=== PATIENT | female | born 1940 | race Caucasian/White ===

== ENCOUNTER 2016-10-03 06:16 | Emergency (ER) | payer MEDICARE, BC ==
[2016-10-03] MEDS ORDERED: KCL 20 MEQ/15 ML UDC ONE (07:32)
== END 2016-10-03 10:09 | disposition home or self-care (01) ==
LOC: ER 06:16
DX: R07.2 Precordial pain (principal); Z79.899 Other long term (current) drug therapy; Z87.891 Personal history of nicotine dependence
CPT/HCPCS: 36415; 71010; 80053; 82550; 83735; 84484; 85025; 85610; 85730; 93005